=== PATIENT | male | born 1980 | race Caucasian/White ===

== ENCOUNTER 2019-03-08 09:31 | Emergency (ER) | payer BC, OTHER ==
[~2019-03-08] VITALS: Ht 180.3 cm; Wt 171.0 kg
[~2019-03-08 09:31] MED LIST: AMLO-147 ORAL; CHLO25TA2 ORAL; IBUP-1542 PO; VALS320T15 ORAL
[2019-03-08 09:34] VITALS: Ht 180.3 cm; Wt 171.0 kg
[2019-03-08] MEDS ORDERED: IBUPROFEN 800 MG TAB PO ONE (10:00)
[2019-03-08 11:45] VITALS: BP 136/79; PULSE 75; RESP 18
== END 2019-03-08 11:47 | disposition home or self-care (01) ==
LOC: E/R 09:31
DX: I10 Essential (primary) hypertension (principal); F17.210 Nicotine dependence, cigarettes, uncomplicated
CPT/HCPCS: 71045; 93005; 99284; Z7610